=== PATIENT | male | born 1990 | race Caucasian/White ===

== ENCOUNTER 2018-04-01 21:48 | Emergency (ER) | payer SELFPAY ==
[~2018-04-01] VITALS: Ht 175.3 cm; Wt 126.1 kg
[2018-04-01 21:57] VITALS: Ht 175.3 cm; Wt 126.1 kg
[2018-04-02 00:36] VITALS: BP 140/93
== END 2018-04-02 00:36 | disposition home or self-care (01) ==
LOC: ED 21:48
DX: L50.0 Allergic urticaria (principal); I10 Essential (primary) hypertension
CPT/HCPCS: J0171; J1100; Q0163

== ENCOUNTER 2019-06-16 08:45 | Emergency (ER) | payer MEDICAID ==
[~2019-06-16] VITALS: Ht 175.3 cm; Wt 132.9 kg
[2019-06-16 09:00] VITALS: Ht 175.3 cm; Wt 132.9 kg
[2019-06-16 10:22] VITALS: BP 130/87
== END 2019-06-16 10:22 | disposition home or self-care (01) ==
LOC: ED 08:45
DX: G44.209 Tension-type headache, unspecified, not intractable (principal); I10 Essential (primary) hypertension
CPT/HCPCS: 82962